=== PATIENT | female | born 1930 | race Caucasian/White ===

== ENCOUNTER 2021-05-11 09:38 | Inpatient (IN) | payer MEDICARE ==
[~2021-05-11] VITALS: Ht 154.9 cm; Wt 76.7 kg
[2021-05-11] MEDS ORDERED: PRADAXA75 MG PO (14:42)
[2021-05-11] MEDS ORDERED: IPRAT-ALBUT 0.5-3 ML INH (14:42)
[2021-05-11] MEDS ORDERED: PHENERGAN 25 MG25 M1 PO (14:42)
[2021-05-11] MEDS ORDERED: TRAMADOL-ACETA1 EACH PO (14:43)
[2021-05-11] MEDS ORDERED: ULTRACET TABLE1 EACH PO (14:43)
[2021-05-11] MEDS ORDERED: CARVEDILOL6.25 MG PO (14:44)
[2021-05-11] MEDS ORDERED: DICYCLOMINE HCL10 MG PO (14:44)
[2021-05-11] MEDS ORDERED: ZESTRIL/PRINIVI10 MG PO (14:45)
[2021-05-11] MEDS ORDERED: HYDROXYZINE HCL10 MG PO (14:45)
[2021-05-11] MEDS ORDERED: IPRATROPIUM BRO15 ML (14:46)
[2021-05-11] MEDS ORDERED: CLARITIN10 MG PO (14:46)
[2021-05-11] MEDS ORDERED: VENTOLIN HFA 66.7 GM INH (14:46)
[2021-05-11] MEDS ORDERED: FLONASE 0.05% N16 GM (17:42)
[2021-05-11] MEDS ORDERED: HAIR, SKIN & N1 EACH PO (17:42)
[2021-05-11] MEDS ORDERED: SYMBICORT 16010.2 GM INH (17:42)
[2021-05-11] MEDS ORDERED: PRILOSEC OTC20 MG PO (17:43)
[2021-05-11 19:20] LABS: HEMOGLOBIN 12.8 gm/dl (12.3-15.3); RED BLOOD COUNT 3.97 M/UL (4.00-5.10); WHITE BLOOD COUNT 6.1 K/UL (4.5-11.0)
[2021-05-12 03:03] LABS: HEMOGLOBIN 11.8 gm/dl (12.3-15.3); RED BLOOD COUNT 3.7 M/UL (4.00-5.10)
[2021-05-12 03:04] LABS: WHITE BLOOD COUNT 7.8 K/UL (4.5-11.0)
[2021-05-13 03:17] LABS: HEMOGLOBIN 12.1 gm/dl (12.3-15.3); RED BLOOD COUNT 3.83 M/UL (4.00-5.10); WHITE BLOOD COUNT 5.9 K/UL (4.5-11.0)
--- NOTE | 2021-05-13 09:51 | NUR ---
0800: BRITTNEY NAJERA RN ASSISTED DR. HENRIQUEZ WITH BEDSIDE THORACENTESIS PROCEDURE. 1200 ML CLEAR, YELLOW FLUID DRAINED IN TO BAG DURING PROCEDURE. NO BLEEDING OR BRUISING NOTED. PATIENT DENIES PAIN OR COUGH. TOLERATED PROCEDURE WELL.
[2021-05-13 10:06] LABS: BODY FLUID SOURCE PLEURAL
[2021-05-13 10:09] LABS: MONONUCLEAR CELLS 95 (75-100); POLYMORPHONUCLEAR % 5 (0-25); RBC (AUTOMATED) 500 (0-100000); WBC (AUTOMATED) 418 (0-500)
[2021-05-13 10:27] LABS: LDH, BODY FLUID 127 U/L
== END 2021-05-13 13:33 | disposition home or self-care (01) | DRG 186 ==
LOC: M/S 13:59
PROVIDERS: Physician Assistant; ADMIT Internal Medicine
PROC: 0W9B3ZX Drainage of Left Pleural Cavity, Percutaneous Approach, Diagnostic (ICD-10-PCS; principal; 2021-05-11)
DX: J90 Pleural effusion, not elsewhere classified (principal); J96.21 Acute and chronic respiratory failure with hypoxia; J44.9 Chronic obstructive pulmonary disease, unspecified; N18.30 Chronic kidney disease, stage 3 unspecified; I12.9 Hypertensive chronic kidney disease with stage 1 through stage 4 chronic kidney disease, or unspecified chronic kidney disease; K21.9 Gastro-esophageal reflux disease without esophagitis; Z96.642 Presence of left artificial hip joint; R91.8 Other nonspecific abnormal finding of lung field; M19.90 Unspecified osteoarthritis, unspecified site; I25.10 Atherosclerotic heart disease of native coronary artery without angina pectoris; Z85.89 Personal history of malignant neoplasm of other organs and systems; Z86.711 Personal history of pulmonary embolism; Z88.0 Allergy status to penicillin; Z72.0 Tobacco use; Z99.81 Dependence on supplemental oxygen; Z86.718 Personal history of other venous thrombosis and embolism; Z90.710 Acquired absence of both cervix and uterus; Z90.49 Acquired absence of other specified parts of digestive tract; Z82.49 Family history of ischemic heart disease and other diseases of the circulatory system
CPT/HCPCS: 36415; 36600; 71046; 80048; 80053; 82803; 83615; 83880; 84157; 85025; 85610; 85730; 87070; 87205; 88341; 88342; 89051; 93005; 94640; 94664; 94760; J1644

== ENCOUNTER → 2021-06-07 | Outpatient (CLI) | payer MEDICARE ==
[~2021-06-07] MED LIST: BACTROBAN OINT22 GM EXT; CARVEDILOL6.25 MG PO; CLARITIN10 MG PO; DICYCLOMINE HCL10 MG PO; FLONASE 0.05% N16 GM; HAIR, SKIN & N1 EACH PO; HYDROXYZINE HCL10 MG PO; IPRAT-ALBUT 0.5-3 ML INH; IPRATROPIUM BRO15 ML; LASIX 40 MG TAB40 MG PO; NITROFURANTOIN100 MG PO; PHENERGAN 25 MG25 M1 PO; PRADAXA75 MG PO; PRILOSEC OTC20 MG PO; SYMBICORT 16010.2 GM INH; TRAMADOL-ACETA1 EACH PO; ULTRACET TABLE1 EACH PO; VENTOLIN HFA 66.7 GM INH; VITAMIN B-121000 MCG PO; VITAMIN C500 M4 PO; VITAMIN D325 MCG PO; ZESTRIL/PRINIVI10 MG PO
== END ==
LOC: EXRD 07:47
DX: Z00.00 Encounter for general adult medical examination without abnormal findings (principal); J98.11 Atelectasis; J90 Pleural effusion, not elsewhere classified
CPT/HCPCS: 71046

== ENCOUNTER → 2021-06-29 | Outpatient (CLI) | payer MEDICARE | LOC: EXRD 15:26 | DX: J90 Pleural effusion, not elsewhere classified (principal) | CPT/HCPCS: 71046 ==

== ENCOUNTER → 2021-07-01 | Day surgery (SDC) | payer MEDICARE | END | disposition home or self-care (01) | LOC: OR 06:37 | DX: J90 Pleural effusion, not elsewhere classified (principal); I13.0 Hypertensive heart and chronic kidney disease with heart failure and stage 1 through stage 4 chronic kidney disease, or unspecified chronic kidney disease; N18.30 Chronic kidney disease, stage 3 unspecified; I50.9 Heart failure, unspecified; D63.1 Anemia in chronic kidney disease; J44.9 Chronic obstructive pulmonary disease, unspecified; J96.11 Chronic respiratory failure with hypoxia; I25.10 Atherosclerotic heart disease of native coronary artery without angina pectoris; I73.9 Peripheral vascular disease, unspecified; Z99.81 Dependence on supplemental oxygen; Z87.891 Personal history of nicotine dependence; Z88.1 Allergy status to other antibiotic agents; Z88.6 Allergy status to analgesic agent; Z88.0 Allergy status to penicillin; Z79.899 Other long term (current) drug therapy; Z20.822 Contact with and (suspected) exposure to COVID-19 | CPT/HCPCS: 71045; 93005; C1729; J1642; J2405; J2704; J3010; J7030; J7040; J7120; U0002 ==

== ENCOUNTER → 2021-07-30 | Outpatient (CLI) | payer MEDICARE | LOC: KOH-I 08:48 | DX: J90 Pleural effusion, not elsewhere classified (principal) | CPT/HCPCS: 71046 ==

== ENCOUNTER 2021-09-10 00:21 | Emergency (ER) | payer MEDICARE ==
[2021-09-10 02:15] LABS: HEMOGLOBIN 10.9 gm/dl (12.3-15.3); RED BLOOD COUNT 3.48 M/UL (4.00-5.10); WHITE BLOOD COUNT 5.5 K/UL (4.5-11.0)
[2021-09-10 03:25] LABS: BUN/CREATININE RATIO 19 (0-10)
== END 2021-09-10 04:00 | disposition home or self-care (01) ==
LOC: ER1 00:21
PROVIDERS: Family Medicine
DX: T85.9XXA Unspecified complication of internal prosthetic device, implant and graft, initial encounter (principal); J90 Pleural effusion, not elsewhere classified; J44.9 Chronic obstructive pulmonary disease, unspecified; E86.0 Dehydration; Z79.01 Long term (current) use of anticoagulants; I12.9 Hypertensive chronic kidney disease with stage 1 through stage 4 chronic kidney disease, or unspecified chronic kidney disease; N18.9 Chronic kidney disease, unspecified; Z79.899 Other long term (current) drug therapy; Z88.8 Allergy status to other drugs, medicaments and biological substances
CPT/HCPCS: 71045; 80053; 82550; 82553; 83874; 84484; 85025; 85610; 93005; 94760; 99284